=== PATIENT | female | born 1945 | race Caucasian/White ===

== ENCOUNTER 2022-09-08 08:48 | Outpatient (CLI) | payer MEDICARE, BC, SELFPAY ==
--- NOTE | 2022-09-08 08:00 | DI.MAMMO_ITS ---
Exam(s) MAMMO SCREENING EXAM: MAMMO SCREENING CLINICAL HISTORY: screening,Z12.39. TECHNIQUE: Bilateral full field digital CC and MLO mammographic images were obtained with 3D tomosyn thesis and utilizing computer aided detection (CAD). COMPARISON: Prior mammograms were reviewed. FINDINGS: Fibroglandular tissue pattern is again noted be moderately dense. There are no CAD designations. There are no obvious new spiculated masses nor malignant appearing microcalcification groups. There is no significant architectural distortion nor skin thickening-retraction. IMPRESSION: No radiographic evidence of malignancy. BI-RADS Category 1 - Negative Breast Density - Category C - Heterogeneously dense Breast density Category C or D implies that the patient has dense breast tissue. Dense breast tissue can make it harder to find cancer on a mammogram. Dense breast tissue is also associated with an incr eased risk of breast cancer. This information about the result of the mammogram report was provided to the patient to raise their awareness. Use this report when you speak with the patient about their risks for breast cancer, which includes their family history. At that time, you may recommend additional screening tests (Ultrasoun d or MRI) as these tests may add significant information. A negative radiographic report should not delay biopsy if a dominant or clinically suspicious mass is present. Up to ten percent of cancers are not identified on mammography. A negative report may reinforce clinical impression. Adenosis and dense breasts may obscure an underlying neoplasm. False positive reports average 6 to 10%. Patient will receive a letter notifying them of these results.
== END 2022-09-08 09:08 ==
PROVIDERS: Visit Provider Nurse Practitioner Women's Health
DX: Z12.31 Encounter for screening mammogram for malignant neoplasm of breast (principal)
CPT/HCPCS: 77063; 77067

== ENCOUNTER 2022-09-16 00:34 | Outpatient (CLI) | payer MEDICARE, BC, SELFPAY ==
--- NOTE | 2022-09-16 11:35 | DI.DEXA_ITS ---
Exam(s) XR DEXA BONE DENSITY W/WO EMMA EXAM: XR DEXA BONE DENSITY W/WO EMMA CLINICAL HISTORY: screening for osteoporosis, Z78.0 TECHNIQUE: [employer] Special Diet Horizon C densitometer analysis of left hip, lumbar spine and left forearm. Lat eral survey image of the thoracic and lumbar spine. COMPARISON: No exams were available for comparison FINDINGS: Lateral view of the thoracic and lumbar spine shows no evidence of compression fractures. Bone mineral density measurements of the lumbar spine correspond to a total T-score of -1.0 at the l ower range of normal. Bone mineral density measurements of the left hip correspond to a total T-score of -1.9. The femora l neck T-score is -2.5, in the osteoporotic range.. Theleft forearm bone mineral density measurements correspond to a T-score of the distal 3rd of -2.0, in the osteopenic range. IMPRESSION: Osteoporosis of the left hip. Borderline normal bone mineral density of the lumbar spine. Osteopeni a of the forearm.
== END 2022-09-16 00:54 ==
PROVIDERS: Visit Provider Nurse Practitioner Women's Health
DX: Z78.0 Asymptomatic menopausal state (principal); Z13.820 Encounter for screening for osteoporosis; M81.6 Localized osteoporosis [Lequesne]
CPT/HCPCS: 77080

== ENCOUNTER 2024-11-18 02:31 | Outpatient (CLI) | payer MEDICARE, BC, SELFPAY ==
--- NOTE | 2024-11-18 | DI.US_ITS ---
Exam(s) US BREAST LT COMPLETE MG MAMMO DIAGNOSTIC BI EXAM: MG MAMMO DIAGNOSTIC BI and U/S breast LT complete CLINICAL HISTORY: LT BREAST MASS N63.20 ABNL MAMMO R92.8. TECHNIQUE: Craniocaudal and mediolateral oblique Full Field Digital Mammography views with Computer Aided Diagnosis followed by Tomosynthesis and left breast ultrasound. A complete left breast ultrasound was performed. All 4 quadrants were evaluated in addition to the axilla and retroareolar region. COMPARISON: Comparison is made with prior examinations. FINDINGS: Mammography/Tomosynthesis: Masses/Architectural Distortion: There is a new 2 cm mildly spiculated mass in the upper outer quadrant of the left breast. Microcalcifictions: No suspicious pleomorphic-type are seen. Skin Thickening/Nipple Retraction: None. Complete left breast US: Echotexture: Normal appearance of the glandular tissue. Shadowing: No suspicious foci. Cyst: None. Solid lesions: There is a solid hypoechoic mass at the 12 o'clock position of the left breast 7 cm from the nipple. It measures 1.8 x 2 x 2 cm. It extends almost to the skin surface. This corresponds to the mammographic abnormality. There are sonographically normal appearing lymph nodes in the left axilla. The lymph nodes are peripherally hypoechoic with a hyperechoic hilum. The largest measures 1.2 cm. Ductal dilation: None. IMPRESSION: 1. New 2 cm mass at the 12 o'clock position of the left breast most concerning for neoplasm. 2. Biopsy is recommended in this patient. 3. The findings were discussed with the patient and their on the date of the examination. BI-RADS Category 5 - Highly Suggestive of Malignancy: Biopsy recommended Breast Density - Category C - The breast are heterogeneously dense, which may obscure small masses. Breast density Category C or D implies that the patient has dense breast tissue. Dense breast tissue can make it harder to find cancer on a mammogram. Dense breast tissue is also associated with an increased risk of breast cancer. This information about the result of the mammogram report was provided to the patient to raise their awareness. Use this report when you speak with the patient about their risks for breast cancer, which includes their family history. At that time, you may recommend additional screening tests (Ultrasound or MRI) as these tests may add significant information. A negative radiographic report should not delay biopsy if a dominant or clinically suspicious mass is present. Up to ten percent of cancers are not identified on mammography. A negative report may reinforce clinical impression. Adenosis and dense breasts may obscure an underlying neoplasm. False positive reports average 6 to 10%. Patient will receive a letter notifying them of these results.
== END 2024-11-18 02:51 ==
LOC: DI 02:32
PROVIDERS: PCP Student in an Organized Health Care Education/Training Program; Visit Provider Student in an Organized Health Care Education/Training Program
DX: Z12.31 Encounter for screening mammogram for malignant neoplasm of breast (principal); N63.25 Unspecified lump in the left breast, overlapping quadrants
CPT/HCPCS: 76642; 77062; 77066; G0279